=== PATIENT | female | born 1935 | race Caucasian/White ===

== ENCOUNTER 2017-10-31 11:48 | Inpatient (IN) | payer MEDICARE, BC ==
[~2017-10-31] VITALS: Ht 160 cm; Wt 52.1 kg
[2017-10-31 12:17] LABS: BASOPHILS # (AUTO) 0.1 X10'3 (0-0.2); BASOPHILS % (AUTO) 0.3 % (0-1); EOSINOPHILS % (AUTO) 0.1 % (0-6); HEMATOCRIT 37.7 % (35.0-45.0); HEMOGLOBIN 12.7 g/dl (12.0-16.0); LYMPHOCYTES # (AUTO) 4.1 X10'3 (1.1-4.8); LYMPHOCYTES % (AUTO) 22.7 % (21-51); MEAN CORPUSCULAR HEMOGLOBIN 30.4 PG (27.0-31.0); MEAN CORPUSCULAR HGB CONC 33.8 % (33.0-36.5); MEAN CORPUSCULAR VOLUME 89.8 FL (78-98); MEAN PLATELET VOLUME 7.8 FL (7.4-10.4); MONOCYTES # (AUTO) 0.9 X10'3 (0-0.9); MONOCYTES % (AUTO) 5.3 % (2-12); NEUTROPHILS # (AUTO) 12.9 X10'3 (1.8-7.7); NEUTROPHILS % (AUTO) 71.6 % (42-75); PLATELET COUNT 379 X10'3 (140-440); RED BLOOD COUNT 4.19 X10'6 (4.20-5.60)
[2017-10-31 12:35] LABS: ALANINE AMINOTRANSFERASE 17 U/L (12-78); ALBUMIN 3.5 G/DL (3.4-5.0); ALBUMIN/GLOBULIN RATIO 1.1 (1.1-1.5); ALKALINE PHOSPHATASE 42 IU/L (46-116); ANION GAP 10 (8-16); ASPARTATE AMINO TRANSFERASE 10 U/L (10-37); BILIRUBIN,TOTAL 0.5 MG/DL (0.1-1.0); BLOOD UREA NITROGEN 64 MG/DL (7-18); BUN/CREATININE RATIO 56.1 (6.6-38.0); CALCIUM 9.5 MG/DL (8.5-10.1); CHLORIDE 103 MMOL/L (99-107); CREATININE 1.14 MG/DL (0.40-0.90); GLUCOSE 134 MG/DL (70-104); POTASSIUM 4.6 MMOL/L (3.5-5.1); SODIUM 139 MMOL/L (135-145); TOTAL CARBON DIOXIDE 25.8 MMOL/L (24-32); TOTAL PROTEIN 6.7 G/DL (6.4-8.2); eGFR 46 ML/MIN
[2017-10-31 12:40] LABS: TROPONIN I < 0.04 NG/ML (0.0-0.05)
[2017-10-31] MEDS ORDERED: normal saline 1000ML IV soln IV ONE (12:55)
[2017-10-31] MEDS ORDERED: levoFLOXACIN-Levaquin 750MG/D5 150 ML IV ONE (12:55)
[2017-10-31] MEDS ORDERED: ipratropium/albuterol 3ml nebule NEB ONE (13:05)
[2017-10-31] MEDS ORDERED: acetaminophen 325mg tablet PO PRN ×2 (15:15)
[2017-10-31] MEDS ORDERED: mag hydrox/Alum hydrox/simeth 30ml oral suspension PO PRN (15:15)
[2017-10-31] MEDS ORDERED: potassium Cl 20 mEq SR tablet PO PRN ×2 (15:15)
[2017-10-31] MEDS ORDERED: potassium Cl 40MEQ/NS 500ml 500 ML IV PRN ×2 (15:15)
[2017-10-31] MEDS ORDERED: magnesium 4gm in 100ml NS 100 ML IV PRN (15:15)
[2017-10-31] MEDS ORDERED: ondansetron/PF 4mg/2ml inj IV PRN (15:15)
[2017-10-31] MEDS ORDERED: magnesium hydroxide 30ml (MOM) UD suspension PO PRN (15:15)
[2017-10-31] MEDS ORDERED: magnesium 1gm/100ml D5W IVPB 100 ML IV PRN (15:15)
[2017-10-31] MEDS ORDERED: magnesium Cl slow-release 64mg tablet PO PRN (15:15)
[2017-10-31] MEDS ORDERED: ipratropium/albuterol 3ml nebule NEB PRN (15:15)
[2017-10-31 15:21] LABS: COLOR,URINE Yellow (Yellow); GLUCOSE, URINE Negative (Neg); KETONES,URINE 15 mg/dl (Neg); LEUKOCYTE ESTERASE ,URINE Moderate (Neg); NITRITES, URINE Negative (Neg); OCCULT BLOOD,URINE Negative (Neg); PROTEIN,URINE Negative (Neg); UROBILINOGEN,URINE 0.2 E.U/dL (0.2-1.0)
[2017-10-31 15:27] LABS: UA COLLECTION TYPE CLN CATCH MIDSTREAM
[2017-10-31 15:28] LABS: CLARITY,URINE SLIGHTLY CLOUDY (Clear)
[2017-10-31 15:29] LABS: BACTERIA,URINE 1+ /HPF (Neg); CAL OXALATE CRYSTALS 2+ /HPF (NEGATIVE); MUCUS STRANDS FEW /LPF (Neg); RBC,URINE NONE SEEN /HPF (0-2); RENAL CELLS, URINE FEW /HPF; SQUAMOUS EPITHELIAL CELL,UR MODERATE /LPF (FEW)
[2017-10-31 15:47] LABS: PARTIAL THROMBOPLASTIN TIME 25 SECONDS (22-32)
[2017-10-31 15:50] LABS: H PYLORI ANTIBODY NEGATIVE (Neg)
[2017-10-31 15:51] LABS: MAGNESIUM 2.2 MG/DL (1.5-2.4); PHOSPHORUS 4.3 MG/DL (2.3-4.5)
[2017-10-31] MEDS: CefTRIAXone/D5W-Rocephin 1gm 50 ML IV SCH (16:30)
[2017-10-31] MEDS: pantoprazole 40 MG vial IV SCH (16:30)
[2017-10-31] MEDS: normal saline 1000ml 1,000 ML IV SCH (16:30)
[2017-10-31 16:55] VITALS: BP 92/66
[2017-10-31 19:00] VITALS: BP 102/68
[2017-10-31] MEDS: ipratropium/albuterol 3ml nebule NEB SCH ×2 (20:14→22:59)
[2017-10-31] MEDS ORDERED: BUPR150T8 PO (21:50)
[2017-10-31] MEDS ORDERED: NITR0.4T SL (21:50)
[2017-10-31] MEDS ORDERED: AMLO10TA PO (21:50)
[2017-10-31] MEDS ORDERED: ALEN70TA13 PO (21:50)
[2017-10-31] MEDS ORDERED: HYDR12.5 PO (21:50)
[2017-10-31] MEDS ORDERED: CODE118S4 PO (21:50)
[2017-10-31] MEDS ORDERED: BECL7.3A INH (21:50)
[2017-10-31] MEDS ORDERED: NICO-687 TOP (21:50)
[2017-10-31] MEDS ORDERED: ALBU18HF2 INH (21:50)
[2017-10-31] MEDS ORDERED: MAGN400C PO (21:54)
[2017-10-31] MEDS ORDERED: ASPI81TA30 PO (21:54)
[2017-10-31] MEDS ORDERED: CHOL10008 PO (21:54)
[2017-10-31] MEDS ORDERED: POTA10TA36 PO (21:54)
[2017-10-31] MEDS ORDERED: CALC-854 PO (21:54)
[2017-10-31] MEDS ORDERED: CYAN100097 PO (21:54)
[2017-10-31 23:00] VITALS: BP 104/60
[2017-11-01 03:00] VITALS: BP 92/46
[2017-11-01 06:31] LABS: BASOPHILS % (AUTO) 0.2 % (0-1); EOSINOPHILS # (AUTO) 0.1 X10'3 (0-0.9); EOSINOPHILS % (AUTO) 1.3 % (0-6); HEMATOCRIT 24.6 % (35.0-45.0); HEMOGLOBIN 8.3 g/dl (12.0-16.0); LYMPHOCYTES # (AUTO) 2.8 X10'3 (1.1-4.8); LYMPHOCYTES % (AUTO) 35.6 % (21-51); MEAN CORPUSCULAR HEMOGLOBIN 30.4 PG (27.0-31.0); MEAN CORPUSCULAR HGB CONC 33.8 % (33.0-36.5); MEAN CORPUSCULAR VOLUME 89.9 FL (78-98); MEAN PLATELET VOLUME 7.8 FL (7.4-10.4); MONOCYTES # (AUTO) 0.5 X10'3 (0-0.9); MONOCYTES % (AUTO) 6.7 % (2-12); NEUTROPHILS # (AUTO) 4.4 X10'3 (1.8-7.7); NEUTROPHILS % (AUTO) 56.2 % (42-75); PLATELET COUNT 268 X10'3 (140-440); RED BLOOD COUNT 2.74 X10'6 (4.20-5.60); RED CELL DISTRIBUTION WIDTH 13.7 % (11.5-14.5); WHITE BLOOD COUNT 7.8 X10'3 (4.5-11.0)
[2017-11-01 07:00] VITALS: BP 110/70
[2017-11-01] MEDS: ipratropium/albuterol 3ml nebule NEB SCH (07:16)
[2017-11-01 07:19] LABS: ALBUMIN 2.5 G/DL (3.4-5.0); ANION GAP 6 (8-16); BLOOD UREA NITROGEN 35 MG/DL (7-18); BUN/CREATININE RATIO 45.5 (6.6-38.0); CALCIUM 7.9 MG/DL (8.5-10.1); CHLORIDE 109 MMOL/L (99-107); CHOL/HDL RATIO 3.1 (0.00-4.99); CHOLESTEROL 96 MG/DL (0-200); CREATININE 0.77 MG/DL (0.40-0.90); GLUCOSE 91 MG/DL (70-104); HDL CHOLESTEROL 31 MG/DL (35-60); LDL CHOLESTEROL 44 MG/DL (50-100); MAGNESIUM 2.1 MG/DL (1.5-2.4); POTASSIUM 3.6 MMOL/L (3.5-5.1); SODIUM 140 MMOL/L (135-145); TOTAL CARBON DIOXIDE 24.9 MMOL/L (24-32); TRIGLYCERIDES 136 MG/DL (20-135); TROPONIN I < 0.04 NG/ML (0.0-0.05); eGFR 72 ML/MIN
[2017-11-01] MEDS: K and/or MAG REPLACEMENT MC SCH (08:00)
[2017-11-01] MEDS ORDERED: levoFLOXACIN-Levaquin 250mg/D5 50 ML IV SCH (08:00)
[2017-11-01] MEDS: pantoprazole 40 MG vial IV SCH (09:31)
[2017-11-01] MEDS: CefTRIAXone/D5W-Rocephin 1gm 50 ML IV SCH (09:31)
[2017-11-01] MEDS: normal saline 1000ml 1,000 ML IV SCH ×2 (09:32→19:49)
[2017-11-01 11:00] VITALS: BP 90/50
[2017-11-01] MEDS: aspirin 81mg tablet.DR PO SCH (11:24)
[2017-11-01] MEDS: amLODIPine 5mg tablet PO SCH (11:24)
[2017-11-01 15:00] VITALS: BP 90/47
[2017-11-01 19:00] VITALS: BP 99/42
[2017-11-01] MEDS: BUDESONIDE 0.25 MG/2 ML AMPUL.NEB IH SCH (19:17)
[2017-11-01] MEDS: lactobacillus rhamnosus 10,000 MMU CELLS/CAPSULE PO SCH (20:35)
[2017-11-01] MEDS: temazepam 15mg capsule PO PRN (20:35)
[2017-11-01 23:00] VITALS: BP 94/55
[2017-11-02] VITALS (18 sets, daily range): BP systolic 81–107; BP diastolic 42–71
[2017-11-02 06:04] LABS: ALBUMIN 2.6 G/DL (3.4-5.0); ANION GAP 5 (8-16); BLOOD UREA NITROGEN 15 MG/DL (7-18); BUN/CREATININE RATIO 22.7 (6.6-38.0); CHLORIDE 110 MMOL/L (99-107); CREATININE 0.66 MG/DL (0.40-0.90); GLUCOSE 94 MG/DL (70-104); POTASSIUM 3.6 MMOL/L (3.5-5.1); SODIUM 139 MMOL/L (135-145); TOTAL CARBON DIOXIDE 24.2 MMOL/L (24-32); eGFR 86 ML/MIN
[2017-11-02 06:13] LABS: BASOPHILS % (AUTO) 0.4 % (0-1); EOSINOPHILS # (AUTO) 0.1 X10'3 (0-0.9); EOSINOPHILS % (AUTO) 1.7 % (0-6); HEMOGLOBIN 7.6 g/dl (12.0-16.0); LYMPHOCYTES # (AUTO) 2.5 X10'3 (1.1-4.8); LYMPHOCYTES % (AUTO) 38.6 % (21-51); MEAN CORPUSCULAR HEMOGLOBIN 30.9 PG (27.0-31.0); MEAN CORPUSCULAR HGB CONC 34.3 % (33.0-36.5); MEAN PLATELET VOLUME 8.1 FL (7.4-10.4); MONOCYTES # (AUTO) 0.5 X10'3 (0-0.9); MONOCYTES % (AUTO) 7.2 % (2-12); NEUTROPHILS # (AUTO) 3.4 X10'3 (1.8-7.7); NEUTROPHILS % (AUTO) 52.1 % (42-75); PLATELET COUNT 242 X10'3 (140-440); RED BLOOD COUNT 2.45 X10'6 (4.20-5.60); RED CELL DISTRIBUTION WIDTH 13.6 % (11.5-14.5); WHITE BLOOD COUNT 6.5 X10'3 (4.5-11.0)
[2017-11-02] MEDS ORDERED: pantoprazole 40mg Tablet.DR PO SCH (07:30)
[2017-11-02] MEDS: aspirin 81mg tablet.DR PO SCH (07:35)
[2017-11-02] MEDS: CefTRIAXone/D5W-Rocephin 1gm 50 ML IV SCH (07:36)
[2017-11-02] MEDS: HYDROchlorothiazide 12.5mg capsule PO SCH (07:36)
[2017-11-02] MEDS: amLODIPine 5mg tablet PO SCH (07:36)
[2017-11-02] MEDS: lactobacillus rhamnosus 10,000 MMU CELLS/CAPSULE PO SCH ×2 (07:36→20:57)
[2017-11-02] MEDS ORDERED: non-formulary drug (Magnesium Oxide (Magnesium) 1 CAP) PO SCH (08:00)
[2017-11-02] MEDS ORDERED: non-formulary drug (Potassium Chloride (K-Dur) 1 TAB) PO SCH (08:00)
[2017-11-02] MEDS: K and/or MAG REPLACEMENT MC SCH (08:00)
[2017-11-02] MEDS: BUDESONIDE 0.25 MG/2 ML AMPUL.NEB IH SCH ×2 (08:38→20:07)
[2017-11-02 09:05] LABS: HEMATOCRIT 23.5 % (35.0-45.0); MEAN CORPUSCULAR HEMOGLOBIN 30.6 PG (27.0-31.0); MEAN CORPUSCULAR HGB CONC 33.9 % (33.0-36.5); MEAN CORPUSCULAR VOLUME 90.2 FL (78-98); MEAN PLATELET VOLUME 7.6 FL (7.4-10.4); PLATELET COUNT 269 X10'3 (140-440); RED BLOOD COUNT 2.61 X10'6 (4.20-5.60); RED CELL DISTRIBUTION WIDTH 13.7 % (11.5-14.5); WHITE BLOOD COUNT 6.9 X10'3 (4.5-11.0)
[2017-11-02 09:11] LABS: OCCULT BLOOD STOOL POSITIVE (Neg)
[2017-11-02] MEDS ORDERED: levoFLOXACIN 250mg tablet PO SCH (11:00)
[2017-11-02] MEDS: normal saline 1000ml 1,000 ML IV SCH (11:08)
[2017-11-02] MEDS: pantoprazole 40 MG vial IV SCH ×2 (11:42→20:58)
[2017-11-02] MEDS ORDERED: MIDAZolam 5mg/5ml vial ONE (13:16)
[2017-11-02] MEDS ORDERED: LIDOcaine Viscous 15ml cup ONE (13:16)
[2017-11-02] MEDS ORDERED: fentaNYL/PF 50MCG/1 ML 2ML syringe ONE (13:16)
[2017-11-02] MEDS: clindamycin 300mg/D5W 50mL 50 ML IV SCH (20:58)
[2017-11-02] MEDS: temazepam 15mg capsule PO PRN (20:58)
[2017-11-03] MEDS: normal saline 1000ml 1,000 ML IV SCH (01:45)
[2017-11-03] MEDS: clindamycin 300mg/D5W 50mL 50 ML IV SCH ×2 (01:46→08:00)
[2017-11-03 03:00] VITALS: BP 89/47
[2017-11-03 05:50] LABS: BASOPHILS % (AUTO) 0.2 % (0-1); EOSINOPHILS # (AUTO) 0.2 X10'3 (0-0.9); EOSINOPHILS % (AUTO) 2.6 % (0-6); HEMATOCRIT 24.9 % (35.0-45.0); HEMOGLOBIN 8.5 g/dl (12.0-16.0); LYMPHOCYTES # (AUTO) 3.3 X10'3 (1.1-4.8); LYMPHOCYTES % (AUTO) 35.6 % (21-51); MEAN CORPUSCULAR HEMOGLOBIN 31.1 PG (27.0-31.0); MEAN CORPUSCULAR HGB CONC 34.2 % (33.0-36.5); MEAN CORPUSCULAR VOLUME 91.2 FL (78-98); MONOCYTES # (AUTO) 0.8 X10'3 (0-0.9); MONOCYTES % (AUTO) 8.1 % (2-12); NEUTROPHILS % (AUTO) 53.5 % (42-75); PLATELET COUNT 298 X10'3 (140-440); RED BLOOD COUNT 2.73 X10'6 (4.20-5.60); RED CELL DISTRIBUTION WIDTH 14.1 % (11.5-14.5); WHITE BLOOD COUNT 9.4 X10'3 (4.5-11.0)
[2017-11-03 06:00] VITALS: BP 96/55
[2017-11-03 06:03] LABS: ALBUMIN 2.8 G/DL (3.4-5.0); ANION GAP 8 (8-16); BLOOD UREA NITROGEN 8 MG/DL (7-18); BUN/CREATININE RATIO 11.1 (6.6-38.0); CALCIUM 8.3 MG/DL (8.5-10.1); CHLORIDE 107 MMOL/L (99-107); CREATININE 0.72 MG/DL (0.40-0.90); GLUCOSE 93 MG/DL (70-104); POTASSIUM 3.9 MMOL/L (3.5-5.1); SODIUM 140 MMOL/L (135-145); TOTAL CARBON DIOXIDE 25.5 MMOL/L (24-32); eGFR 78 ML/MIN
[2017-11-03] MEDS: CefTRIAXone/D5W-Rocephin 1gm 50 ML IV SCH (08:00)
[2017-11-03] MEDS: K and/or MAG REPLACEMENT MC SCH (08:00)
[2017-11-03] MEDS: HYDROchlorothiazide 12.5mg capsule PO SCH (08:00)
[2017-11-03] MEDS: pantoprazole 40 MG vial IV SCH (08:00)
[2017-11-03] MEDS: amLODIPine 5mg tablet PO SCH (08:00)
[2017-11-03] MEDS: lactobacillus rhamnosus 10,000 MMU CELLS/CAPSULE PO SCH (08:05)
[2017-11-03] MEDS: BUDESONIDE 0.25 MG/2 ML AMPUL.NEB IH SCH (08:47)
[2017-11-03 11:00] VITALS: BP 92/62
[2017-11-03] MEDS ORDERED: LEVO500T89 PO (11:47)
[2017-11-03] MEDS ORDERED: CLIN150C2 PO (11:47)
[2017-11-03] MEDS ORDERED: PANT40TA4 PO (11:47)
[2017-11-03] MEDS ORDERED: LACT1CAP26 PO (11:47)
== END 2017-11-03 12:24 | disposition home or self-care (01) | DRG 177 ==
LOC: ER 11:48 → ED HOLD 15:13 → PCU 3S 16:50
PROVIDERS: ADMIT Family Medicine; ATTEND Family Medicine
PROC: 0DB68ZX Excision of Stomach, Via Natural or Artificial Opening Endoscopic, Diagnostic (ICD-10-PCS; principal; 2017-11-02)
DX: J69.0 Pneumonitis due to inhalation of food and vomit (principal); K25.4 Chronic or unspecified gastric ulcer with hemorrhage; K29.71 Gastritis, unspecified, with bleeding; J44.1 Chronic obstructive pulmonary disease with (acute) exacerbation; R71.0 Precipitous drop in hematocrit; N18.9 Chronic kidney disease, unspecified; R12 Heartburn; I25.10 Atherosclerotic heart disease of native coronary artery without angina pectoris; F17.210 Nicotine dependence, cigarettes, uncomplicated; I12.9 Hypertensive chronic kidney disease with stage 1 through stage 4 chronic kidney disease, or unspecified chronic kidney disease; R00.0 Tachycardia, unspecified; K44.9 Diaphragmatic hernia without obstruction or gangrene; M85.80 Other specified disorders of bone density and structure, unspecified site; Z90.710 Acquired absence of both cervix and uterus; Z95.5 Presence of coronary angioplasty implant and graft; Z88.0 Allergy status to penicillin; Z90.49 Acquired absence of other specified parts of digestive tract; Z85.41 Personal history of malignant neoplasm of cervix uteri; Z71.6 Tobacco abuse counseling
CPT/HCPCS: 36415; 43239; 71045; 71250; 76937; 80048; 80053; 80061; 81001; 82272; 83605; 83735; 84100; 84145; 84484; 85025; 85027; 85610; 85730; 86677; 86885; 86900; 86901; 87040; 87070; 87088; 88305; 88342; 93005; 93306; 94640; 94667; 94668; 94760; 96365; 97162; 97530; 99285; A4620; C9113; G0500; J0696; J1956; J2250; J3010; J7030; X5958

== ENCOUNTER 2020-12-15 08:18 | Emergency (ER) | payer MEDICARE, BC ==
[~2020-12-15] VITALS: Ht 160 cm; Wt 50.0 kg
[~2020-12-15 08:18] MED LIST: ALBU18HF2 INH; AMLO10TA PO; BECL7.3A INH; CALC-854 PO; CHOL10008 PO; CYAN100097 PO; HYDR12.5 PO; LACT1CAP26 PO; MAGN400C PO; NICO-687 TOP; NITR0.4T SL; PANT40TA54 PO
[2020-12-15] MEDS ORDERED: HYDROcodone/acetaminophen 5mg/325mg tablet PO ONE ×2 (13:15→18:35)
[2020-12-15 13:18] LABS: BASOPHILS # (AUTO) 0.1 X10'3 (0-0.2); BASOPHILS % (AUTO) 0.5 % (0-1); EOSINOPHILS # (AUTO) 0.1 X10'3 (0-0.9); EOSINOPHILS % (AUTO) 0.7 % (0-6); HEMATOCRIT 43.2 % (35.0-45.0); HEMOGLOBIN 14.3 g/dl (12.0-16.0); LYMPHOCYTES # (AUTO) 1.9 X10'3 (1.1-4.8); LYMPHOCYTES % (AUTO) 19.3 % (21-51); MEAN CORPUSCULAR HGB CONC 33.2 g/dL (33.0-36.5); MEAN CORPUSCULAR VOLUME 87.5 FL (78-98); MEAN PLATELET VOLUME 7.8 FL (7.4-10.4); MONOCYTES # (AUTO) 0.7 X10'3 (0-0.9); MONOCYTES % (AUTO) 7.3 % (2-12); NEUTROPHILS # (AUTO) 7.2 X10'3 (1.8-7.7); NEUTROPHILS % (AUTO) 72.2 % (42-75); PLATELET COUNT 393 X10'3 (140-440); RED BLOOD COUNT 4.94 X10'6 (4.20-5.60); RED CELL DISTRIBUTION WIDTH 15.9 % (11.5-14.5)
[2020-12-15 13:23] LABS: PARTIAL THROMBOPLASTIN TIME 27 SECONDS (22-32)
[2020-12-15 13:24] LABS: ALANINE AMINOTRANSFERASE 22 U/L (12-78); ALBUMIN 3.7 G/DL (3.4-5.0); ALKALINE PHOSPHATASE 84 IU/L (46-116); ANION GAP 6 (8-16); ASPARTATE AMINO TRANSFERASE 15 U/L (10-37); BILIRUBIN,TOTAL 0.8 MG/DL (0.1-1.0); BLOOD UREA NITROGEN 30 MG/DL (7-18); BUN/CREATININE RATIO 36.6 (6.6-38.0); CALCIUM 9.5 MG/DL (8.5-10.1); CHLORIDE 103 MMOL/L (99-107); CREATININE 0.82 MG/DL (0.40-0.90); GLUCOSE 110 MG/DL (70-104); POTASSIUM 3.2 MMOL/L (3.5-5.1); SODIUM 137 MMOL/L (135-145); TOTAL CARBON DIOXIDE 27.6 MMOL/L (24-32); TOTAL PROTEIN 7.3 G/DL (6.4-8.2); eGFR 66 ML/MIN
[2020-12-15 13:28] LABS: LIPASE 131 U/L (73-393); MAGNESIUM 2.2 MG/DL (1.5-2.4)
[2020-12-15] MEDS ORDERED: ondansetron 4mg rapidly disintigrating tab PO ONE (13:35)
[2020-12-15] MEDS ORDERED: iohexol 350MG/ML 100ml bottle IV ONE (15:29)
[2020-12-15 16:03] LABS: CLARITY,URINE CLEAR (Clear); COLOR,URINE YELLOW (Yellow); UA COLLECTION TYPE CLN CATCH MIDSTREAM
[2020-12-15 16:04] LABS: GLUCOSE, URINE NEGATIVE (Neg); KETONES,URINE 40 mg/dl (Neg); LEUKOCYTE ESTERASE ,URINE NEGATIVE (Neg); NITRITES, URINE NEGATIVE (Neg); OCCULT BLOOD,URINE NEGATIVE (Neg); PROTEIN,URINE NEGATIVE (Neg); UROBILINOGEN,URINE 0.2 E.U/dL (0.2-1.0)
[2020-12-15] MEDS ORDERED: HYDR-3965 PO (18:24)
[2020-12-15 18:48] VITALS: BP 122/82
== END 2020-12-15 18:50 | disposition home or self-care (01) ==
LOC: ER 08:19
DX: M54.6 Pain in thoracic spine (principal); J44.9 Chronic obstructive pulmonary disease, unspecified; I10 Essential (primary) hypertension; Z87.410 Personal history of cervical dysplasia; Z85.9 Personal history of malignant neoplasm, unspecified; Z90.49 Acquired absence of other specified parts of digestive tract; Z90.710 Acquired absence of both cervix and uterus; Z88.0 Allergy status to penicillin; Z79.899 Other long term (current) drug therapy
CPT/HCPCS: 36415; 71045; 71275; 74175; 80053; 81003; 83690; 83735; 84145; 84484; 85025; 85610; 85730; 93005; 99285; Q9967